=== PATIENT | female | born 1990 | race Caucasian/White ===

== ENCOUNTER 2019-09-12 10:11 | Emergency (ER) | payer OTHER ==
[2019-09-12 10:56] VITALS: BP 141/89
[2019-09-12 11:14] LABS: Influenza B Molecular POSITIVE (Negative)
[2019-09-12] MEDS ORDERED: Acetaminophen TAB* 325 MG PO ONE (11:16)
--- NOTE | 2019-09-12 11:19 | UC ---
FLU HPI - HPI Summary HPI Summary: 29-year-old female with flulike symptoms since yesterday. She is presently on an immunosuppressant for psoriasis treatment. - History of Current Complaint Chief Complaint: UCRespiratory Stated Complaint: FEVER ACHY VOMITING Time Seen by Provider: 09/12/19 10:52 Hx Obtained From: Patient Hx Last Menstrual Period: 08/18/2019 ?: No Onset/Duration: Sudden Onset, Lasting Hours Severity Currently: Moderate Severity Initially: Moderate Pain Intensity: 4 Associated Signs & Symptoms: Positive: Fever, Myalgia, Cough, Nasal Congestion, Headache, Vomiting - Vomited one time yesterday Related Hx: Possible Flu/Infectious Exposure - Allergy/Home Medications Allergies/Adverse Reactions: Allergies Allergy/AdvReac Type Severity Reaction Status Date / Time No Known Allergies Allergy Verified 09/12/19 10:51 Home Medications: Home Medications Cpm/PE/Dm/Acetaminophen/Guaifn [Tylenol Cold-Flu Day-Nt Caplet] 2 each PO Q6H PRN 09/12/19 [History Confirmed 09/12/19] Oseltamivir CAP* [Tamiflu CAP*] 75 mg PO BID 5 Days #10 cap 09/12/19 [Rx] Risankizumab-Rzaa [Skyrizi] 75 mg SUBCUT Q90D 09/12/19 [History Confirmed ] PMH/Surg Hx/FS Hx/Imm Hx - Additional Past Medical History Additional PMH: Psoriasis...on immunosuppressant tx. Previously Healthy: Yes - Surgical History Surgical History: Yes Surgery Procedure, Year, and Place: Tubal Ligation, 2018, [place]; Cholecystectomy, 2016, [place]; , 2014, [place] - Family History Known Family History: Positive: Non-Contributory - Social History Occupation: Employed Full-time Lives: With Family Alcohol Use: None Substance Use Type: Marijuana Substance Use Comment - Amount & Last Used: "Once or twice a week" Smoking Status (MU): Never Smoked Tobacco Review of Systems All Other Systems Reviewed And Are Negative: Yes Constitutional: Positive: Fever, Chills ENT: Positive: Nasal Discharge Respiratory: Positive: Cough - Nonproductive cough Gastrointestinal: Positive: Vomiting, Nausea - Vomited times one yesterday Musculoskeletal: Positive: Myalgia Is Patient Immunocompromised?: Yes - On immunosuppressant therapy for psoriasis Physical Exam Triage Information Reviewed: Yes Appearance: No Pain Distress, Well-Nourished, Ill-Appearing Vital Signs: Initial Vital Signs Temp 102.4 F 09/12/19 10:49 Pulse 128 09/12/19 10:49 Resp 20 09/12/19 10:49 BP 141/89 09/12/19 10:49 Pulse Ox 99 09/12/19 10:49 Vital Signs Reviewed: Yes Eyes: Positive: Conjunctiva Clear ENT: Positive: Pharynx normal, TMs normal, Uvula midline Neck: Positive: Supple, Nontender, No Lymphadenopathy Respiratory: Positive: Lungs clear, Normal breath sounds, No respiratory distress, No accessory muscle use Cardiovascular: Positive: No Murmur, Pulses Normal, Brisk Capillary Refill, Tachycardia Musculoskeletal Exam: Normal Neurological Exam: Normal Psychological Exam: Normal Skin Exam: Normal Flu Course/Dx - Course Course Of Treatment: Rapid flu test: Positive Patient is comfortable here and in no distress. Last time she took Tylenol was 1:30 this morning. Tylenol was offered here however because patient is mildly nauseous she opted to wait until she gets home. 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 Because she is on immunosuppressive therapy for psoriasis she did opt to start Tamiflu. She was given the physician referral information pamphlet. - Differential Dx/Diagnosis Provider Diagnosis: Influenza Discharge ED - Sign-Out/Discharge Documenting (check all that apply): Patient Departure All imaging exams completed and their final reports reviewed: No Studies - Discharge Plan Condition: Fair Disposition: HOME Prescriptions: Oseltamivir CAP* [Tamiflu CAP*] 75 mg PO BID 5 Days #10 cap Patient Education Materials: Influenza (DC) Referrals: [facility] [Outside] No Primary Care Phys,NOPCP [Primary Care Provider] - Additional Instructions: Increase fluids, rest, [id number] cold medicines as directed. Follow-up with your primary care provider or [facility] if no improvement in 3 or 4 days. - Billing Disposition and Condition Condition: FAIR Disposition: Home
== END 2019-09-12 11:27 | disposition home or self-care (01) ==
LOC: UCCORT 10:11
DX: J11.1 Influenza due to unidentified influenza virus with other respiratory manifestations (principal); L40.9 Psoriasis, unspecified
CPT/HCPCS: 99202; A9270-GY; G0463